=== PATIENT | female | born 1985 | race Hispanic/Latino ===

== ENCOUNTER 2019-03-29 15:56 | Emergency (ER) | payer OTHER ==
[~2019-03-29] VITALS: Ht 170.2 cm; Wt 79.2 kg
[2019-03-29 16:24] LABS: BASO % 0.5 % (0.0-1.0); EOS # 0.1 10^3/uL (0.0-0.50); EOS % 1.4 % (0.0-3.0); HEMATOCRIT 40.4 % (36.0-47.0); HEMOGLOBIN 13.7 g/dl (12.0-15.5); LYMPH % 22.8 % (24.0-44.0); MEAN CORPUSCULAR HEMOGLOBIN 32.2 pg (27.0-33.0); MEAN CORPUSCULAR HGB CONC 33.9 g/dl (32.0-36.5); MEAN CORPUSCULAR VOLUME 94.8 fl (80.0-96.0); MONO # 0.8 10^3/uL (0.0-0.8); MONO % 8.8 % (0.0-5.0); NEUTROPHILS # 5.7 10^3/uL (1.8-7.7); PLATELET COUNT, AUTOMATED 204 10^3/uL (150-450); RED BLOOD COUNT 4.26 10^6/uL (4.00-5.40); WHITE BLOOD COUNT 8.7 10^3/uL (4.0-10.0)
[2019-03-29] MEDS ORDERED: NS 1,000 ML IV ONE (16:30)
[2019-03-29 17:01] LABS: BLOOD UREA NITROGEN 5 MG/DL (7-18); CALCIUM LEVEL 9.6 MG/DL (8.5-10.1); CARBON DIOXIDE LEVEL 25 MEQ/L (21-32); CHLORIDE LEVEL 106 MEQ/L (98-107); CREATININE FOR GFR 0.67 MG/DL (0.55-1.30); GLOMERULAR FILTRATION RATE > 60.0 (>60); GLUCOSE, FASTING 83 MG/DL (70-100); HCG, SERUM QUANTITATIVE 60777 MIU/ML; POTASSIUM SERUM 4.1 MEQ/L (3.5-5.1); SODIUM LEVEL 138 MEQ/L (136-145)
[2019-03-29] MEDS ORDERED: RHOGAM 300 MCG (1500 IU) INJ (J2790) IM ONE (17:30)
--- NOTE | 2019-03-29 18:35 | REPVR ---
EXAM: US First Trimester, Transabdominal EXAM DATE/TIME: 03/29/2019 5:02 PM CLINICAL HISTORY: 33 years old, female; Lmp or gestational age (in weeks): 12; Antepartum complications; Bleeding; ; Additional info: Vaginal bleeding changed from 2nd tri to 1st TECHNIQUE: Imaging protocol: Real-time transabdominal obstetrical ultrasound of the maternal pelvis and a first trimester , less than 14 weeks 0 days, with image documentation. COMPARISON: No relevant prior studies available. FINDINGS: GESTATION: Gestation: Single intrauterine gestation. Heart rate: 171 bpm. Placenta: Unremarkable. No subchorionic bleed. Amniotic fluid: Amniotic and chorionic fluid are normal for gestational age. BIOMETRY: Estimated gestational age: [place] rump length of 6.5 cm, corresponds to gestational age of 12 weeks 6 days. SANIYA is 10/05/19. MATERNAL: Uterus: Unremarkable. Cervix: Unremarkable. Right adnexa: Unremarkable. Left adnexa: Unremarkable. Intraperitoneal: No intraperitoneal free fluid. IMPRESSION: Single living intrauterine with a gestational age of 12 weeks and 6 days by ultrasound. Electronically signed by: Ashleigh Sims On 03/29/2019 18:35:29 PM
[2019-03-29] MEDS ORDERED: metroNIDAZOLE (FLAGYL) 500 MG TAB PO ONE (18:45)
[2019-03-29] MEDS ORDERED: FLAG500T PO (18:46)
[2019-03-29 18:54] LABS: CHLAMYDIA DNA AMPLIFICATION NEGATIVE (NEGATIVE); GC DNA AMPLIFICATION NEGATIVE (NEGATIVE)
[2019-03-29 19:21] VITALS: BP 125/68
== END 2019-03-29 19:24 | disposition home or self-care (01) ==
LOC: M ED 15:56
DX: O20.0 Threatened abortion (principal); O23.591 Infection of other part of genital tract in pregnancy, first trimester; Z3A.12 12 weeks gestation of pregnancy
CPT/HCPCS: 76801; 80048; 81001; 84702; 85025; 86850; 86900; 86901; 87086; 87210; 87491; 87591; 96360; 96361; 96372; 99284; J2790

== ENCOUNTER → 2019-09-12 | Outpatient (REF) | payer OTHER ==
[~2019-09-12] MED LIST: FLAG500T PO
== END ==
LOC: M SFHCLERA 10:27
PROVIDERS: ATTEND Nurse Practitioner Family
DX: J02.9 Acute pharyngitis, unspecified (principal)

== ENCOUNTER 2019-09-25 16:22 | Inpatient (IN) | payer OTHER ==
[~2019-09-25] VITALS: Ht 170.2 cm; Wt 87.2 kg
[2019-09-25] VITALS (9 sets, daily range): BP systolic 138–163; BP diastolic 80–99
[2019-09-25] MEDS ORDERED: ALBU8.5H IH (16:50)
[2019-09-25] MEDS ORDERED: ADV100INH INH (16:50)
[2019-09-25] MEDS ORDERED: PRENTAB9 PO (16:50)
[2019-09-25] MEDS ORDERED: SING10TA32 PO (16:50)
[2019-09-25] MEDS ORDERED: MAPA500T2 PO (16:50)
[2019-09-25] MEDS ORDERED: ALBUTEROL SULFATE 2.5 MG/0.5 ML INH NEB SOLN NEB ONE (17:15)
[2019-09-25 17:52] LABS: HEMATOCRIT 46.6 % (36.0-47.0); MEAN CORPUSCULAR HEMOGLOBIN 31.2 pg (27.0-33.0); MEAN CORPUSCULAR HGB CONC 32.2 g/dl (32.0-36.5); MEAN CORPUSCULAR VOLUME 96.9 fl (80.0-96.0); PLATELET COUNT, AUTOMATED 148 10^3/uL (150-450); RED BLOOD COUNT 4.81 10^6/uL (4.00-5.40); WHITE BLOOD COUNT 12.9 10^3/uL (4.0-10.0)
[2019-09-25 18:13] LABS: APPEARANCE, URINE CLEAR (CLEAR); BACTERIA, URINE AUTO NEGATIVE (NEGATIVE); BILIRUBIN, URINE AUTO NEGATIVE (NEGATIVE); BLOOD, URINE BLOOD NEGATIVE (NEGATIVE); COLOR, URINE STRAW (YELLOW); GLUCOSE, URINE (UA) AUTO NEGATIVE (NEGATIVE); KETONE, URINE AUTO NEGATIVE (NEGATIVE); LEUKOCYTE ESTERASE, URINE AUTO TRACE (NEGATIVE); NITRITE, URINE AUTO NEGATIVE (NEGATIVE); PROTEIN, URINE AUTO NEGATIVE (NEGATIVE); RBC, URINE AUTO 0 /HPF (0-3); SPECIFIC GRAVITY URINE AUTO 1.002 (1.002-1.035); SQUAMOUS EPITHELIAL CELL UR AU 2 /HPF (0-6); UROBILINOGEN, URINE AUTO 0.2 mg/dL (0.0-2.0); WBC, URINE AUTO 3 /HPF (0-3)
[2019-09-25 18:24] LABS: ALT/SGPT 497 U/L (12-78); BILIRUBIN,TOTAL 1.4 MG/DL (0.2-1.0); CREATININE FOR GFR 1.31 MG/DL (0.55-1.30); GLOMERULAR FILTRATION RATE 50.1 (>60); LDH LACTATE DEHYDROGENASE 489 U/L (84-246); URIC ACID 7.8 MG/DL (2.6-6.0)
[2019-09-25 18:38] LABS: CREATININE,RANDOM URINE 13.9 MG/DL; TOTAL PROTEIN,RANDOM URINE 9.1 MG/DL (0.0-12.0)
[2019-09-25 18:40] LABS: INFLUENZA A AMPLIFICATION NEGATIVE (NEGATIVE); INFLUENZA B AMPLIFICATION NEGATIVE (NEGATIVE)
[2019-09-25] MEDS ORDERED: CALCIUM GLUCONATE 1,000 MG in D5W MINI-BAG PLUS 100 ML IV PRN (19:15)
[2019-09-25] MEDS ORDERED: MAG Sulf (L&D) 4 GM/100 ML 4 GM in IV 1 EA IV ONE (19:15)
[2019-09-25] MEDS ORDERED: MAG Sulf (OBGYN) 20GM/500ML 20,000 MG in IV 1 EA IV SCH (19:30)
[2019-09-25] MEDS ORDERED: OXYTOCIN DRIP 30 UNITS in IV 1 EA IV SCH (20:00)
[2019-09-25] MEDS: LR 1,000 ML IV SCH (20:00)
--- NOTE | 2019-09-25 20:20 | HPEPDOC ---
Obstetrical History & Physical General Date of Admission Sep 25, 2019 at 18:43 History of Present Illness Ms. Anton Oswald is a 33yo at 38+2wks who is being admitted for IOL d/t Pre-Eclampsia. She denies RUQ pain/PEÑALOZA/Visual disturbances. She does c/o flu-like symptoms over the past two weeks. She reports +FM, denies LOF/VB; she has had intermittent CTX. Her is complicated by Asthma; she last used albuterol this morning. She has a history of PTD at 36wks and has been on Angie this ; last administered 3DEC19 at 36wks. 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: Abnormal Pap (ASCUS, HPV Negative) Past Medical History Medical History Asthma Surgical History: Dilatation and Curettage Family History Significant Family History: No pertinent family hx Social History Marital Status: Family situation: Spouse/partner home Psychosocial History: No pertinent psych hx * Smoker: non-smoker Alcohol: Denies Imunizations Tdap status: current Influenza Status: declined Allergies Coded Allergies: No Known Allergies (Unverified , 03/29/19) Medications Scheduled No.137/Iron/Folic Acd ( Vitamin Tablet) 1 Each Tablet, 1 TAB PO DAILY Scheduled PRN Acetaminophen (Mapap) 500 Mg Tablet, 1,000 MG PO for PAIN Montelukast Sodium (Singulair) 10 Mg Tablet, 10 MG PO DAILY PRN for DYSPNEA Salmeterol/Fluticasone (Advair 100-50 Diskus) 1 Each Blst.w.dev, 1 PUFF INH BIDP PRN for DYSPNEA Miscellaneous Medications Albuterol Sulfate (Albuterol Sulfate Hfa) 8.5 Gm Hfa.aer.ad, 8.5 GM IH Physical Examination Physical Examination GENERAL: Alert and oriented times three. ABDOMEN: Gravid and non-tender to touch. FETUS: Is vertex by sterile vaginal examination. HEART RATE: Regular rate and rhythm. LUNGS: Clear to auscultation. EXTREMITIES: BLE - no edema; No clonus. Deep tendon reflexes (RLE +2, LLE dim inished) Laboratory Data 24H LABS Laboratory Tests 2 09/25/19 17:15: Urine Color STRAW, Urine Appearance CLEAR, Urine pH 7.0, Urine Specific [place] 1.002, Urine Protein NEGATIVE, Urine Glucose (Auto)(UA) NEGATIVE, Urine Ketones (Auto) NEGATIVE, Urine Blood NEGATIVE, Urine Nitrite NEGATIVE, Urine Bilirubin NEGATIVE, Urine Urobilinogen 0.2, Urine Leukocyte Esterase (Auto) TRACEH, Urine WBC (Auto) 3, Urine RBC (Auto) 0, Urine Hyaline Casts (Auto) 0, Urine Bacteria (Auto) NEGATIVE, Urine Squamous Epithelial Cells 2, Urine Sperm (Auto) , Urine Random Creatinine 13.9, Urine Random Total Protein 9.1 09/25/19 17:30: Influenza Type A (RT-PCR) NEGATIVE, Influenza Type B (RT-PCR) NEGATIVE 09/25/19 17:31: Glomerular Filtration Rate 50.1L, Uric Acid 7.8H, Total Bilirubin 1.4H, Aspartate Amino Transf (AST/SGOT) 245H, Alanine Aminotransferase (ALT/SGPT) 497H, Lactate Dehydrogenase 489H 09/25/19 17:36: Nucleated Red Blood Cells % (auto) 0.5H 09/25/19 19:10: Serology Scanned Report Hepatitis B Testing CBC/BMP Laboratory Tests 09/25/19 17:31 09/25/19 17:36 Pertinent Laboratoy Data Blood Type: O- HIV: Negative Hepatitis B: Negative Rapid Plasma Reagin: Nonreactive Rubella: Immune Varicella: Immune Chlamydia/Gonorrhea: Negative Group B Streptococcus: Negative Glucose Tolerance Test: 126 Anatomy Ultrasound Ultrasound Date: May 27, 2019 Placenta Location: Anterior Normal Anatomy: Yes Placenta Previa: No Vaginal Examination Dilation: 6 cm Effacement: 80% Station: -3 Cervical Consistency: Soft Cervical Position: Posterior Presentation: Cephalic presentation Assessment Heart Rate (FHR): 145 Variability: Moderate Accelerations: Positive Decelerations: None Tocometer Contractions: Yes Frequency: irregular Assessment/Plan Assessment Ms. Anton Oswald is a 33yo G0111 at 38+2 weeks being admitted for Pre-Eclampsia based on mild range BPs and abnormal Pre-E labs. She is Rh Negative (O Negative), GBS Negative, HIV negative. Plan Admit to LND, Consented for Induction of labor Counseled on Magnesium Sulfate and Pitocin IV Start, admission labs drawn PO and IV hydration Redraw Pre-E labs in 6 hours Start Magnesium 4g bolus, then 2g/hr maintenance Strict I/Os CEFM x2 Start Pitocin per protocol Rapid Flu (NEGATIVE) Consulted with Dr. Green; will transfer management at this time Anticipate Epidural if pt desires SAE GONZALEZ CNM Sep 25, 2019 20:20
[2019-09-25] MEDS ORDERED: ALBUTEROL 90 MCG/ACT 8GM HFA INHALER INH PRN (22:00)
[2019-09-25] MEDS ORDERED: guaiFENesin DM LIQ 10ML UD PO ONE (22:00)
--- NOTE | 2019-09-25 22:07 | IPNPDOC ---
Text Note Date of Service The patient was seen on 09/25/19. NOTE patient is a 33 yo @38+2wks admitted for IOL secondary to pre-eclampsia with severe feature (elevated liver enzymes). patient with history of asthma on advair. she has been having congestion with coughing for the past two weeks which has been exacerbating her asthma symptoms. patient denies PEÑALOZA/N/V. pit: 4mU/min Magm/hr vitals: mild range NAD, laying in bed, aox3 cta s w/r/r s1s2 s m/g/c abd: gravid, soft, nt, cephalic by joseph's UE: brachioradialis reflex 2+, symmetrical LE: petalla reflex: 0, no edema fht: 145/mod ashish/pos accel/no decel toco: ctx [id number] a/p patient @ 38+2wks with pre-e with severe feature, undergoing induction of labor. continue with pit and mag prophy. repeat lab 6 hrs after last check. anticipate arom with next check. patient with cough and asthma. continue with advair and albuterol prn. add robitussin DM for cough. VS,Fishbone, I+O VS, Fishbone, I+O Laboratory Tests 09/25/19 17:31 09/25/19 17:36 JAYLON MARTINO DO Sep 25, 2019 22:07
[2019-09-25] MEDS: ADVAIR HFA 230/21MCG INHALER INH SCH (22:20)
[2019-09-26] VITALS (43 sets, daily range): BP systolic 67–167; BP diastolic 40–101
[2019-09-26 00:16] LABS: HEMATOCRIT 46.2 % (36.0-47.0); HEMOGLOBIN 14.7 g/dl (12.0-15.5); MEAN CORPUSCULAR HEMOGLOBIN 30.9 pg (27.0-33.0); MEAN CORPUSCULAR HGB CONC 31.8 g/dl (32.0-36.5); MEAN CORPUSCULAR VOLUME 97.1 fl (80.0-96.0); PLATELET COUNT, AUTOMATED 156 10^3/uL (150-450); RED BLOOD COUNT 4.76 10^6/uL (4.00-5.40); WHITE BLOOD COUNT 13.9 10^3/uL (4.0-10.0)
[2019-09-26 00:41] LABS: ALBUMIN 2.1 GM/DL (3.2-5.2); BILIRUBIN,TOTAL 1.3 MG/DL (0.2-1.0); CALCIUM LEVEL 9.6 MG/DL (8.5-10.1); CREATININE FOR GFR 1.43 MG/DL (0.55-1.30); GLOMERULAR FILTRATION RATE 45.3 (>60); MAGNESIUM LEVEL 5.9 MG/DL (1.8-2.4); POTASSIUM SERUM 4.1 MEQ/L (3.5-5.1); TOTAL PROTEIN 6.9 GM/DL (6.4-8.2)
--- NOTE | 2019-09-26 00:47 | IPNPDOC ---
Text Note Date of Service The patient was seen on 09/26/19. NOTE patient is a 33 yo @38+3 feeling mild ctx. pit: 6mU/min fht: 145/mod ashish/no accel/no decel toco: ctx q 6mins ce: /-1, AROM, particulate MEC. a/p patient in latent labor, continue to titrate pit to effect. recheck in 4hrs. DO adelita VS,Lloyd, I+O VS, Lloyd, I+O Laboratory Tests 09/25/19 17:31 09/25/19 17:36 09/25/19 23:53 I&O- Last 24 Hours up to 6 AM 09/26/19 06:00 Intake Total 250 ml Output Total 800 ml Balance -550 ml JAYLON MARTINO DO Sep 26, 2019 00:47
[2019-09-26] MEDS ORDERED: fentaNYL 100 MCG/2 ML INJECTION (J3010) IV ONE (01:45)
[2019-09-26] MEDS ORDERED: miSOPROStol 200 MCG TAB (S0191) PR ONE (02:00)
[2019-09-26] MEDS ORDERED: LIDOCAINE 1% MDV 20ML VIAL SC ONE (02:00)
[2019-09-26] MEDS ORDERED: ACETAMINOPHEN 500 MG TAB PO ONE (03:00)
[2019-09-26] MEDS ORDERED: METHYLERGONOVINE MALEATE 0.2 MG/ML VIAL (J2210) IM ONE (03:00)
--- NOTE | 2019-09-26 03:13 | DNPDOC ---
[facility] Delivery Note Delivery Note DATE OF DELIVERY: 09/26/2020 PREDELIVERY DIAGNOSIS: 38+3/7 weeks' gestation and labor. pre-eclampsia with severe feature POST DELIVERY DIAGNOSIS: Delivered. pre-eclampsia with severe feature PROCEDURE: TRANSMISSION ASSEMBLER: Dr. Hamida Green DO ANESTHESIA: none ESTIMATED BLOOD LOSS: 500 mL. FINDINGS: 7 pound 15 ounce 3610 gm, femaleinfant, Score 7/8 DELIVERY SUMMARY: With good maternal effort, baby delivered OA. Restituted ROT. Anterior shoulder delivered, followed by posterior shoulder, body followed with ease. Baby placed on maternal abdomen with vigorous cries. Cord allows to stop pulsating. Cord clamped x 2 and cut by FOB. Pitocin bolus started. Placenta delivered spontaneously. Fundus massaged firm. Patient continues to have intermittent gushes of bleeding. Cytotect 1000mcg placed rectally. Bladder straight cath 650cc of urine retrieved. Fundus massaged firm. Bleeding improves. Inspection reveals 1st degree midline laceration repaired with 2-0 vicryl. Baby and mother bonding when I left he room. DO SALENA Green LUAT N. DO Sep 26, 2019 03:13
[2019-09-26] MEDS ORDERED: MORPHINE 10 MG/ML 1ML VIAL (J2270) As Ordered ONE (03:54)
[2019-09-26] MEDS ORDERED: MORPHINE 10 MG/ML 1ML VIAL (J2270) IV ONE (04:00)
[2019-09-26] MEDS ORDERED: OXYTOCIN 30 UNITS IN 0.9% NaCl 500ML IV BAG (J2590) As Ordered ONE (04:48)
[2019-09-26] MEDS ORDERED: LIDOCAINE 2% INJ 100 MG/5 ML SDV (FOR ANES.) As Ordered ONE (05:08)
[2019-09-26] MEDS ORDERED: PROPOFOL 200 MG/20 ML VIAL As Ordered ONE (05:08)
[2019-09-26] MEDS ORDERED: fentaNYL 100 MCG/2 ML INJECTION (J3010) As Ordered ONE (05:08)
[2019-09-26] MEDS ORDERED: MIDAZOLAM INJ 2 MG/2 ML VIAL (J2250) As Ordered ONE (05:08)
[2019-09-26] MEDS ORDERED: ROCURONIUM BROMIDE 50 MG/5 ML VIAL As Ordered ONE (05:08)
[2019-09-26] MEDS ORDERED: ONDANSETRON 4MG/2ML VIAL (J2405) As Ordered ONE (05:08)
[2019-09-26] MEDS ORDERED: PHENYLephrine HCL 500 MCG/5 ML (100MCG/ML) SYRINGE (J2370) As Ordered ONE (05:09)
[2019-09-26] MEDS ORDERED: VASOPRESSIN INJ 20 UNITS/ML VIAL As Ordered ONE (05:19)
[2019-09-26] MEDS ORDERED: SUCCINYLCHOLINE 100 MG/5 ML SYRINGE (J0330) As Ordered ONE (05:27)
[2019-09-26] MEDS ORDERED: OXYTOCIN DRIP 30 UNITS in IV 1 EA IV SCH (05:47)
[2019-09-26] MEDS ORDERED: ACETAMINOPHEN TAB 650MG DOSE (2X325MG) PO PRN (06:00)
[2019-09-26] MEDS ORDERED: RHOGAM 300 MCG (1500 IU) INJ (J2790) IM SCH (06:00)
[2019-09-26] MEDS ORDERED: DIBUCAINE 1% OINTMENT 30GM TOP PRN (06:00)
[2019-09-26] MEDS ORDERED: DOCUSATE SODIUM 100 MG CAP PO PRN (06:00)
[2019-09-26] MEDS ORDERED: MEASLES,MUMPS,RUBELLA VACCINE INJ (MMR-II) (90707) SC SCH (06:00)
[2019-09-26] MEDS ORDERED: UNASYN 1.5 GM VIAL As Ordered ONE (06:09)
[2019-09-26] MEDS ORDERED: ONDANSETRON 4MG/2ML VIAL (J2405) IV PRN (06:15)
[2019-09-26] MEDS ORDERED: fentaNYL 100 MCG/2 ML INJECTION (J3010) IV PRN (06:15)
[2019-09-26] MEDS ORDERED: LR 1,000 ML IV SCH (06:15)
[2019-09-26] MEDS ORDERED: KETOROLAC 30 MG/ML VIAL (J1885) IV PRN (06:15)
[2019-09-26 06:18] LABS: HEMATOCRIT 39.2 % (36.0-47.0); MEAN CORPUSCULAR HEMOGLOBIN 29.1 pg (27.0-33.0); MEAN CORPUSCULAR HGB CONC 30.4 g/dl (32.0-36.5); MEAN CORPUSCULAR VOLUME 95.8 fl (80.0-96.0); PLATELET COUNT, AUTOMATED 108 10^3/uL (150-450); RED BLOOD COUNT 4.09 10^6/uL (4.00-5.40)
[2019-09-26] MEDS: AMPICILLIN SOD/SULBACTAM SOD 3 GM in D5W MINI-BAG PLUS 100 ML IV SCH ×4 (06:21→23:30)
--- NOTE | 2019-09-26 06:26 | IPNPDOC ---
Text Note Date of Service The patient was seen on 09/26/19. NOTE Called in to patient room about 1 hr with concern for passing blood clot and patient feeling dizzy. Patient laying flat, pale. Patient feeling significant dizziness and faint. Bimanual expressed large clots and brisk bleeding followed. Fundus firm to palpation. Mag turned off. BP at 60/42. unable to palpate radial pulse. Fluid bolus ordered. Blood called for. Pitocin maintenance still hanging. patient was given 1000mcg cytotec rectally immediate . methergine 0.2 mcg ordered and given IM. with subsequent bimanual, patient continues to have brisk bleeding. Blood transfusion started. BP improved to normal range after fluid bolus and first unit of blood given. Bakri balloon placement attempted. Was able to place 180cc of NS before it started to come down from the uterus. Bleeding decreased momentarily. Repeat bimanual exam felt bakri balloon in the vagina. that was removed. Patient continues to have brisk bleeding. At this point EBL 1700cc total. Discussed with patient regarding need for emergent fractional curettage and possible placement of bakri balloon in the OR. Patient verbally consented for procedure. Back to OR for emergent surgery. VS,Fishbone, I+O VS, Fishbone, I+O Laboratory Tests 09/25/19 17:31 09/25/19 17:36 09/25/19 23:53 Vital Signs Date Time Temp Pulse Resp B/P (MAP) Pulse Ox O2 Delivery O2 Flow Rate FiO2 09/26/19 04:27 91 20 136/97 (110) 09/25/19 22:45 98.3 I&O- Last 24 Hours up to 6 AM 09/26/19 06:00 Intake Total 250 ml Output Total 2050 ml Balance -1800 ml JAYLON MARTINO DO Sep 26, 2019 06:26
[2019-09-26] MEDS ORDERED: ACETAMINOPHEN *IV* 1,000 MG IV ONE ×2 (06:30)
[2019-09-26 06:35] LABS: HEMOGLOBIN 11.9 g/dl (12.0-15.5); INR 1.85; PROTHROMBIN TIME 21.1 SECONDS (11.8-14.0)
[2019-09-26 06:36] LABS: PARTIAL THROMBOPLASTIN TIME 38.4 SECONDS (25.0-38.4)
[2019-09-26 06:41] LABS: FIBRINOGEN 100 MG/DL (221-452)
[2019-09-26 06:49] LABS: BILIRUBIN,TOTAL 1.9 MG/DL (0.2-1.0); CALCIUM LEVEL 8.2 MG/DL (8.5-10.1); CREATININE FOR GFR 1.49 MG/DL (0.55-1.30); GLOMERULAR FILTRATION RATE 43.2 (>60); POTASSIUM SERUM 5.8 MEQ/L (3.5-5.1); URIC ACID 7.3 MG/DL (2.6-6.0)
[2019-09-26] MEDS ORDERED: ALBUTEROL SULFATE 2.5 MG/0.5 ML INH NEB SOLN As Ordered ONE (06:49)
[2019-09-26] MEDS ORDERED: ALBUTEROL SULFATE 2.5 MG/0.5 ML INH NEB SOLN INH ONE (07:00)
[2019-09-26 07:07] LABS: D-DIMER QUANT > 4000 ng/ml (<500)
--- NOTE | 2019-09-26 07:10 | POST-OPPD ---
Postoperative Procedure Note Date Of Procedure: Sep 26, 2019 PREOPERATIVE DIAGNOSIS: hemorrhage pre-eclampsia with severe features (HELLP) POSTOPERATIVE DIAGNOSIS: hemorrhage pre-eclampsia with severe features (HELLP) FINDINGS: blood clots at fundus, small amount of trailing membranes. PROCEDURE: Exam under anesthesia, Sharp and suction currettage attempt at placing Bakri Balloon repair of first degree laceration SURGEON: Jaylon Green DO FACILITIES ENGINEERING MANAGER: none ANESTHESIA: general SPECIMENS: intrauterine contents ESTIMATED BLOOD LOSS: 300cc COMPLICATIONS: none POSTOPERATIVE CONDITION: stable Indication for procedure: Patient with immediate hemorrhage, unable to control in room. Patient verbally consented for emergent take back to OR for sharp curettage and possible placement of Bakri balloon. Description of procedure: Patient underwent general anesthesia with endotracheal intubation. Patient placed on low lithotomy using yellow fins. She was draped. Blood clots expressed with bimanual. Vaginal exam shows no cervical laceration. First degree laceration is not bleeding. Bleeding appears to come intrauterine. Fundus continues to be firm on palpation. Small banjo curette used and able to clear clots and debris from uterus. There was no evidence of retained placental tissue. Small amounts of trailing membranes noted. A curve 14mm suction curette used to perform suction curette. Attempt to place Bakri balloon resulted in expulsion x 2. Bleeding subsides and remains scant with fundus continues to be firm. Pitocin restarted. Count correct x 2. Patient extubated and taken out of OR in stable condition. JAYLON GREEN DO Sep 26, 2019 05:55
[2019-09-26] MEDS: ADVAIR HFA 230/21MCG INHALER INH SCH ×2 (07:54→20:21)
[2019-09-26 10:08] LABS: HEMOGLOBIN 10.5 g/dl (12.0-15.5); MEAN CORPUSCULAR HEMOGLOBIN 29.7 pg (27.0-33.0); MEAN CORPUSCULAR HGB CONC 31.8 g/dl (32.0-36.5); MEAN CORPUSCULAR VOLUME 93.5 fl (80.0-96.0); PLATELET COUNT, AUTOMATED 104 10^3/uL (150-450); RED BLOOD COUNT 3.53 10^6/uL (4.00-5.40)
[2019-09-26] MEDS ORDERED: MAG Sulf (OBGYN) 20GM/500ML 20,000 MG in IV 1 EA IV SCH (10:15)
[2019-09-26] MEDS ORDERED: MAGNESIUM SULFATE 4% INJ 20GM/500ML (40MG/ML) (J3475) As Ordered ONE (10:16)
[2019-09-26 10:20] LABS: INR 1.77; PROTHROMBIN TIME 20.4 SECONDS (11.8-14.0); WHITE BLOOD COUNT 31.4 10^3/uL (4.0-10.0)
[2019-09-26 10:21] LABS: PARTIAL THROMBOPLASTIN TIME 34.8 SECONDS (25.0-38.4)
[2019-09-26 10:26] LABS: FIBRINOGEN 98 MG/DL (221-452)
[2019-09-26 10:46] LABS: D-DIMER QUANT > 4000 ng/ml (<500)
[2019-09-26] MEDS ORDERED: LR 500 ML IV ONE (11:00)
[2019-09-26 14:23] LABS: BILIRUBIN,TOTAL 1.9 MG/DL (0.2-1.0); CREATININE FOR GFR 1.4 MG/DL (0.55-1.30); GLOMERULAR FILTRATION RATE 46.4 (>60); URIC ACID 7.8 MG/DL (2.6-6.0)
[2019-09-26] MEDS: PRENATAL VITAMINS CHEWABLE TABLET PO SCH (15:57)
[2019-09-26 16:20] LABS: HEMATOCRIT 29.9 % (36.0-47.0); HEMOGLOBIN 9.6 g/dl (12.0-15.5); MEAN CORPUSCULAR HEMOGLOBIN 30.2 pg (27.0-33.0); MEAN CORPUSCULAR HGB CONC 32.1 g/dl (32.0-36.5); PLATELET COUNT, AUTOMATED 111 10^3/uL (150-450); RED BLOOD COUNT 3.18 10^6/uL (4.00-5.40)
[2019-09-26 16:22] LABS: WHITE BLOOD COUNT 39.8 10^3/uL (4.0-10.0)
[2019-09-26 16:30] LABS: INR 1.65; PARTIAL THROMBOPLASTIN TIME 33.7 SECONDS (25.0-38.4); PROTHROMBIN TIME 19.3 SECONDS (11.8-14.0)
[2019-09-26 16:36] LABS: FIBRINOGEN 117 MG/DL (221-452)
[2019-09-26] MEDS: LR 1,000 ML IV SCH (16:42)
[2019-09-26 16:49] LABS: D-DIMER QUANT > 4000.0 ng/ml (<500)
[2019-09-26 17:18] LABS: ALBUMIN 1.3 GM/DL (3.2-5.2); BILIRUBIN,TOTAL 1.3 MG/DL (0.2-1.0); CALCIUM LEVEL 7.5 MG/DL (8.5-10.1); CREATININE FOR GFR 1.6 MG/DL (0.55-1.30); GLOMERULAR FILTRATION RATE 39.8 (>60); POTASSIUM SERUM 4.7 MEQ/L (3.5-5.1); TOTAL PROTEIN 4.7 GM/DL (6.4-8.2)
--- NOTE | 2019-09-26 19:20 | IPNPDOC ---
Progress Note Date of Service: Sep 26, 2019 Progress Note Deidre is a 33 yo G3 now P2 who is s/p early this morning (~0230) after being admitted for an IOL for pre eclampsia with severe features and HELLP Syndrome. She had a hemorrhage with an approximately 2000ml blood loss, to include blood loss with delivery. She was taken to the OR about 2-3 hours after delivery in order to control the hemorrhage. She underwent multiple uterine sweeps, a curettage, and received 2U PRBCs in addition to methergine and cytotec. A bakri balloon was attempted a couple times but would not remain within the uterus. Bleeding improved after these interventions and stabilized. She has been receiving 1gm/hr IV magnesium throughout the day for seizure prophylaxis. We are following her LFTs, platelets, and creatinine closely. She is receiving 3gm Unasyn Q6H due to her multiple uterine sweeps and explorations. BPs have remained stable today with only mild elevations. HR is 90s-100s to 110s. She has an appropriate pulse ox. She is afebrile. Deidre reports feeling tired and groggy but denies any pain to include headaches, RUQ pain, or SOB. She endorses some blurry vision. General - Deidre is tired appearing, but is in bed and is able to answer questions appropriately. Abdomen - Fundus firm at U. No fundal tenderness. Extremities - 1+ pitting edema in upper and lower extremities UO - Improving, ~100ml/hr over last several hours via jewlel catheter Labs: LFTS downtrending, but slowly, Cr hovering around 1.4-1.6. Platelets improving to ~110. H/H remains stable. WBC count very elevated at 39. Deidre is stable. Urine output is improving. I suspect her creatinine will start trending in the appropriate direction as she continues to diurese. Will halt IV magnesium at ~0200. Blood pressures are stable along with H/H. Note made of elevated WBC count and I suspect this is due to her multiple uterine explorations and procedures. Will continue Unasyn for full 24 hours postope ratively. If Deidre remains stable overnight, will potentially be able to move her to the [facility] in the morning. All patient and questions answered. Lorenza Rios, DO VS, I&O, 24H, Fishbone Vital Signs/I&O Vital Signs Date Time Temp Pulse Resp B/P (MAP) Pulse Ox O2 Delivery O2 Flow Rate FiO2 09/26/19 18:39 100 16 121/71 (88) 09/26/19 16:40 99 09/26/19 15:40 97.9 09/26/19 14:40 Nasal Cannula 2.0 I&O- Last 24 Hours up to 6 AM 09/26/19 05:59 Intake Total 1350 ml Output Total 3234 ml Balance -1884 ml Laboratory Data 24H LABS Laboratory Tests 2 09/25/19 19:10: Serology Scanned Report Hepatitis B Testing 09/25/19 23:53: Nucleated Red Blood Cells % (auto) 0.6H, Anion Gap 11, Glomerular Filtration Rate 45.3L, Calcium Level 9.6, Magnesium Level 5.9*H, Total Bilirubin 1.3H, Aspartate Amino Transf (AST/SGOT) 207H, Alanine Aminotransferase (ALT/SGPT) 449H, Alkaline Phosphatase 333H, Total Protein 6.9, Albumin 2.1L, Albumin/Globulin Ratio 0.44L 09/26/19 05:04: POC pH (Misc Panel) 7.251L, POC Base Excess (Misc Panel) -10.0L, POC Saturated Percent O2 (Misc) 83L, POC pO2 (Misc Panel) 55.0L, POC pCO2 (Misc Panel) 39.1, POC HCO3 (Misc Panel) 17.2L, POC Glucose (Misc Panel) 91, POC Sodium (Misc Panel) 135L, POC Potassium (Misc Panel) 5.1, POC Total CO2 (Misc Panel) 18.0L, POC Ionized Calcium (Misc Panel) 5.1, POC Hemoglobin (Calculated)(Misc) 11.2L, POC Hematocrit (Misc Panel) 33.0L 09/26/19 06:08: Nucleated Red Blood Cells % (auto) 0.8H, Anion Gap 8, Glomerular Filtration Rate 43.2L, Calcium Level 8.2L, Total Bilirubin 1.9H, Aspartate Amino Transf (AST/SGOT) 135H, Alanine Aminotransferase (ALT/SGPT) 273H, Prothrombin Time 21.1H, Prothromb Time International Ratio 1.85, Activated Partial Thromboplast Time 38.4, Fibrinogen 100L, D-Dimer, Quantitative > 4000H, Uric Acid 7.3H, Lactate Dehydrogenase 481H 09/26/19 09:56: Nucleated Red Blood Cells % (auto) 0.5H, Prothrombin Time 20.4H, Prothromb Time International Ratio 1.77, Activated Partial Thromboplast Time 34.8, Fibrinogen 98L, D-Dimer, Quantitative > 4000H, Glomerular Filtration Rate 46.4L, Uric Acid 7.8H, Total Bilirubin 1.9H, Aspartate Amino Transf (AST/SGOT) 153H, Alanine Aminotransferase (ALT/SGPT) 275H, Lactate Dehydrogenase 665H 09/26/19 16:08: Nucleated Red Blood Cells % (auto) 0.5H, Prothrombin Time 19.3H, Prothromb Time International Ratio 1.65, Activated Partial Thromboplast Time 33.7, Fibrinogen 117L, D-Dimer, Quantitative > 4000.0H, Glomerular Filtration Rate 39.8L, Total Bilirubin 1.3H, Aspartate Amino Transf (AST/SGOT) 120H, Alanine Aminotransferase (ALT/SGPT) 244H, Anion Gap 11, Calcium Level 7.5L, Alkaline Phosphatase 212H, Total Protein 4.7#L, Albumin 1.3#L, Albumin/Globulin Ratio 0.38L CBC/BMP Laboratory Tests 09/25/19 23:53 09/26/19 06:08 09/26/19 09:56 09/26/19 16:08 LORENZA RIOS DO Sep 26, 2019 19:20
[2019-09-27] VITALS (21 sets, daily range): BP systolic 117–146; BP diastolic 42–87
[2019-09-27] MEDS: ACETAMINOPHEN 500 MG TAB PO PRN ×2 (01:33→18:38)
[2019-09-27] MEDS: AMPICILLIN SOD/SULBACTAM SOD 3 GM in D5W MINI-BAG PLUS 100 ML IV SCH (05:26)
[2019-09-27 05:43] LABS: HEMATOCRIT 22.4 % (36.0-47.0); MEAN CORPUSCULAR HEMOGLOBIN 30.4 pg (27.0-33.0); MEAN CORPUSCULAR HGB CONC 32.6 g/dl (32.0-36.5); MEAN CORPUSCULAR VOLUME 93.3 fl (80.0-96.0); PLATELET COUNT, AUTOMATED 114 10^3/uL (150-450)
[2019-09-27 05:45] LABS: HEMOGLOBIN 7.3 g/dl (12.0-15.5); WHITE BLOOD COUNT 38.8 10^3/uL (4.0-10.0)
[2019-09-27 06:05] LABS: ALBUMIN 1.3 GM/DL (3.2-5.2); CALCIUM LEVEL 6.8 MG/DL (8.5-10.1); CREATININE FOR GFR 1.47 MG/DL (0.55-1.30); GLOMERULAR FILTRATION RATE 43.9 (>60); POTASSIUM SERUM 4.2 MEQ/L (3.5-5.1); TOTAL PROTEIN 4.2 GM/DL (6.4-8.2)
--- NOTE | 2019-09-27 08:13 | IPNPDOC ---
Progress Note Date of Service: Sep 27, 2019 Progress Note Deidre is a 33 yo G3 no2 P2 who is PPD#1 s/p at ~0230 on 26Sep2019 after being admitted for an IOL for severe pre eclampsia / HELLP Syndrome. She had a hemorrhage with total EBL ~2000ml. She received uterotonics, multiple uterine sweeps, and underwent an curettage in the OR. Bleeding stabilized and she received 2U PRBCs. She completed 24 hours of IV magnesium for seizure prophylaxis last night at ~0230. We have been trending bl ood work and she remained stable all of yesterday. She just completed 24 hours of post procedure IV unasyn for infection prophylaxis after her multiple uterine sweeps and curettage procedure. Deidre is sleeping in bed. I did not awaken her. Vitals - VSS, only mildly elevated BPs but mostly normal. HR 90s-100s. Afebrile. Pulse ox 100% on RA General - sleeping in bed UO - good. ~100ml/hr. Most recent Labs (529 on 27Sep2019): H/H - 7.3/22.4 plts - 114 WBC - 38 Cr - 1.47 AST/ALT - 74/175 Deidre is doing well. She has completed 24 hours of IV magnesium for seizure prophylaxis and 24 hours postprocedure IV unasyn. Cr, platelets, and AST/ALT trending in the right direction. H/H likely represents true betina from her hemorrhage. She has no signs / symptoms of active bleeding. Will remove catheter today and ambulate. If she has symptoms of anemia would consider additional 2U PRBC transfusion. WBC count continues to be elevated, though she is afebrile. I suspect this is from her multiple uterine sweeps / explorations. She completed 24 hours of IV abx for infection prophylaxis. Would recommend repeat tox labs early this afternoon. Otherwise is Deidre can ambulate well and void on her own without problems, she can be transferred to the [facility]. If ambulation is suboptimal, I would recommend she keep SCDs in place due to her clotting risk. Lorenza Rios, DO VS, I&O, 24H, Fishbone Vital Signs/I&O Vital Signs Date Time Temp Pulse Resp B/P (MAP) Pulse Ox O2 Delivery O2 Flow Rate FiO2 09/27/19 04:55 97.7 105 18 141/75 (97) 100 Room Air 09/26/19 14:40 2.0 I&O- Last 24 Hours up to 6 AM 09/27/19 06:00 Intake Total 3162.4 ml Output Total 2330 ml Balance 832.4 ml Laboratory Data 24H LABS Laboratory Tests 2 09/26/19 09:56: Nucleated Red Blood Cells % (auto) 0.5H, Prothrombin Time 20.4H, Prothromb Time International Ratio 1.77, Activated Partial Thromboplast Time 34.8, Fibrinogen 98L, D-Dimer, Quantitative > 4000H, Glomerular Filtration Rate 46.4L, Uric Acid 7.8H, Total Bilirubin 1.9H, Aspartate Amino Transf (AST/SGOT) 153H, Alanine Aminotransferase (ALT/SGPT) 275H, Lactate Dehydrogenase 665H 09/26/19 16:08: Nucleated Red Blood Cells % (auto) 0.5H, Prothrombin Time 19.3H, Prothromb Time International Ratio 1.65, Activated Partial Thromboplast Time 33.7, Fibrinogen 117L, D-Dimer, Quantitative > 4000.0H, Glomerular Filtration Rate 39.8L, Total Bilirubin 1.3H, Aspartate Amino Transf (AST/SGOT) 120H, Alanine Aminotransferase (ALT/SGPT) 244H, Anion Gap 11, Calcium Level 7.5L, Alkaline Phosphatase 212H, Total Protein 4.7#L, Albumin 1.3#L, Albumin/Globulin Ratio 0.38L 09/27/19 05:18: Nucleated Red Blood Cells % (auto) 0.6H, Glomerular Filtration Rate 43.9L, Total Bilirubin 1.0, Aspartate Amino Transf (AST/SGOT) 74H, Alanine Aminotransferase (ALT/SGPT) 175H, Anion Gap 11, Calcium Level 6.8L, Alkaline Phosphatase 174H, Total Protein 4.2L, Albumin 1.3L, Albumin/Globulin Ratio 0.45L CBC/BMP Laboratory Tests 09/26/19 09:56 09/26/19 16:08 09/27/19 05:18 LORENZA RIOS DO Sep 27, 2019 08:13
[2019-09-27] MEDS: ADVAIR HFA 230/21MCG INHALER INH SCH ×2 (09:00→18:50)
[2019-09-27] MEDS: PRENATAL VITAMINS CHEWABLE TABLET PO SCH (09:26)
[2019-09-27 13:03] LABS: MEAN CORPUSCULAR HEMOGLOBIN 30.5 pg (27.0-33.0); MEAN CORPUSCULAR HGB CONC 32.8 g/dl (32.0-36.5); PLATELET COUNT, AUTOMATED 114 10^3/uL (150-450); RED BLOOD COUNT 2.13 10^6/uL (4.00-5.40)
[2019-09-27 13:12] LABS: HEMOGLOBIN 6.5 g/dl (12.0-15.5)
[2019-09-27 13:13] LABS: HEMATOCRIT 19.8 % (36.0-47.0)
[2019-09-27 13:25] LABS: ALBUMIN 1.2 GM/DL (3.2-5.2); BILIRUBIN,TOTAL 0.7 MG/DL (0.2-1.0); CREATININE FOR GFR 1.35 MG/DL (0.55-1.30); GLOMERULAR FILTRATION RATE 48.4 (>60); POTASSIUM SERUM 3.9 MEQ/L (3.5-5.1); TOTAL PROTEIN 4.2 GM/DL (6.4-8.2)
[2019-09-27 13:41] LABS: WHITE BLOOD COUNT 35.4 10^3/uL (4.0-10.0)
[2019-09-27 18:18] LABS: HEMATOCRIT 26.7 % (36.0-47.0); MEAN CORPUSCULAR HEMOGLOBIN 29.1 pg (27.0-33.0); MEAN CORPUSCULAR HGB CONC 32.6 g/dl (32.0-36.5); MEAN CORPUSCULAR VOLUME 89.3 fl (80.0-96.0); PLATELET COUNT, AUTOMATED 114 10^3/uL (150-450); RED BLOOD COUNT 2.99 10^6/uL (4.00-5.40)
[2019-09-27 18:19] LABS: HEMOGLOBIN 8.7 g/dl (12.0-15.5); WHITE BLOOD COUNT 31.5 10^3/uL (4.0-10.0)
[2019-09-27 18:45] LABS: ALBUMIN 1.3 GM/DL (3.2-5.2); CREATININE FOR GFR 1.21 MG/DL (0.55-1.30); GLOMERULAR FILTRATION RATE 54.9 (>60); TOTAL PROTEIN 4.4 GM/DL (6.4-8.2)
[2019-09-28 02:00] VITALS: BP 145/82
[2019-09-28] MEDS ORDERED: ONDANSETRON 4MG/2ML VIAL (J2405) IV ONE (06:15)
[2019-09-28 06:31] LABS: HEMOGLOBIN 8.5 g/dl (12.0-15.5); MEAN CORPUSCULAR HEMOGLOBIN 29.2 pg (27.0-33.0); MEAN CORPUSCULAR HGB CONC 32.7 g/dl (32.0-36.5); MEAN CORPUSCULAR VOLUME 89.3 fl (80.0-96.0); PLATELET COUNT, AUTOMATED 119 10^3/uL (150-450); RED BLOOD COUNT 2.91 10^6/uL (4.00-5.40)
[2019-09-28 06:58] LABS: ALBUMIN 1.4 GM/DL (3.2-5.2); ALT/SGPT 127 U/L (12-78); BILIRUBIN,TOTAL 0.8 MG/DL (0.2-1.0); BLOOD UREA NITROGEN 27 MG/DL (7-18); CALCIUM LEVEL 7.1 MG/DL (8.5-10.1); CARBON DIOXIDE LEVEL 23 MEQ/L (21-32); CHLORIDE LEVEL 109 MEQ/L (98-107); CREATININE FOR GFR 1.09 MG/DL (0.55-1.30); GLOMERULAR FILTRATION RATE > 60.0 (>60); GLUCOSE, FASTING 66 MG/DL (70-100); SODIUM LEVEL 138 MEQ/L (136-145); TOTAL PROTEIN 4.7 GM/DL (6.4-8.2)
[2019-09-28] MEDS: ADVAIR HFA 230/21MCG INHALER INH SCH ×2 (07:49→19:46)
[2019-09-28 10:00] VITALS: BP 135/75
[2019-09-28] MEDS: PRENATAL VITAMINS CHEWABLE TABLET PO SCH (11:11)
[2019-09-28 13:47] VITALS: BP 147/72
[2019-09-28 18:00] VITALS: BP 140/77
[2019-09-28] MEDS: ACETAMINOPHEN 500 MG TAB PO PRN (18:22)
[2019-09-28 22:00] VITALS: BP 126/76
[2019-09-28] MEDS ORDERED: CEPACOL LOZENGE PO PRN (22:45)
[2019-09-29 02:00] VITALS: BP 144/82
[2019-09-29] MEDS: ACETAMINOPHEN 500 MG TAB PO PRN (02:23)
[2019-09-29 06:00] VITALS: BP 127/72
[2019-09-29] MEDS: ADVAIR HFA 230/21MCG INHALER INH SCH (07:26)
--- NOTE | 2019-09-29 08:25 | REP ---
Clinical: Cough. History of asthma. . Comparison: None . Technique: PA and lateral. Findings: The mediastinum and cardiac silhouette are normal. The lung aguero are clear and without acute consolidation, effusion, or pneumothorax. The skeletal structures are intact and normal. Impression: 1. No acute cardiopulmonary process. Electronically Signed by Orlin Kimble MD 09/29/2019 08:16 A
[2019-09-29] MEDS: PRENATAL VITAMINS CHEWABLE TABLET PO SCH (08:27)
[2019-09-29] MEDS ORDERED: ALBUTEROL SULFATE 2.5 MG/0.5 ML INH NEB SOLN NEB ONE (09:00)
--- NOTE | 2019-09-29 09:03 | IPNPDOC ---
Progress Note Date of Service: Sep 29, 2019 Day#: 3 Progress Note PP/POD 3 Deidre is a 33yo G3 now P1202 who is PPD#3 s/p on Sep after being admitted for an IOL for pre-eclampsia with severe features, HELLP Syndrome. Additionally, she had a hemorrhage with total EBL ~2000ml. She received uterotonics, multiple uterine sweeps, and underwent a curettage in the OR. Bleeding stabilized and she received total 4U pRBCs. She completed 24 hours of IV magnesium for seizure prophylaxis and she received 24 hours of post-procedure IV Unasyn for infection prophylaxis. Notably, when patient was first admitted, she noted an ongoing upper respiratory infection and she is an asthmatic who takes both daily inhaler and prn albuterol. Deidre reports overall doing well this morning, only complaint is "chest heaviness" with her cough. She requested throat lozenges last night. Respiratory therapy arrived just after I finished rounding on Deidre. She is voiding spontaneously without issues, ambulating without lightheadedness or dizziness, tolerating regular diet. She is pumping but has no output yet, formula feeding infant with plan to continue trying to stimulate milk production. She reports having a fever last night (100.2F), no chills. No headache/vision changes/RUQ p ain. Vitals: normotensive to mild range bp's, afebrile. General - resting comfortably in bed Abdomen- soft, NTTP, FF @ u-2 Extremities: no pain with palpation of calves Labs: last drawn am 09/28 H/H - 8.5/26 from 7.3/22.4 plts - 119, stable WBC -29 down from 38 Cr - 1.09 down from 1.47 AST/ALT - 62/127 down from 74/175 09/25 influenza A and B negative Radiology: Chest XRAY 09/29/19: no acute cardiopulmonary process Assessment: Deidre is a 33yo G3 now P1202 who is PPD#3 s/p on Sep after being admitted for an IOL for pre-eclampsia with severe features, HELLP Syndrome. Additionally, she had a hemorrhage with total EBL ~2000ml. She received uterotonics, multiple uterine sweeps, and underwent a curettage in the OR. Bleeding stabilized and she received total 4U pRBCs. She completed 24 hours of IV magnesium for seizure prophylaxis and she received 24 hours of post-procedure IV Unasyn for infection prophylaxis. Notably, when patient was first admitted, she noted an ongoing upper respiratory infection and she is an asthmatic who takes both daily inhaler and prn albuterol. Patient has cough w/chest heaviness- chest xray negative this morning. She had a temp of 100.2F last night, but no sx of endometritis- may be related to her ongoing URI. Mild range to normotensive bps, no s/sx of worsening pre-E. Labs have all improved. Benign exam. Plan: -Routine care -Med neb treatment ordered -Regular diet -encourage ambulation, breast pumping, use of IS -continue routine inhalers -Dr. Green will re-eval this afternoon and if patient meets criteria, she will be discharged Dr. Giana Rod MD VS, I&O, 24H, Fishbone Vital Signs/I&O Vital Signs Date Time Temp Pulse Resp B/P (MAP) Pulse Ox O2 Delivery O2 Flow Rate FiO2 09/29/19 06:00 98.0 87 20 127/72 (90) 100 Room Air 09/26/19 14:40 2.0 Giana Rod MD Sep 29, 2019 08:53
[2019-09-29 10:00] VITALS: BP 147/76
--- NOTE | 2019-09-29 12:05 | OBDS ---
[facility] Obstetrical Discharge Sum. Obstetrical Discharge Summary : 3 Term: 2 Pre-term: 0 Abortions: 1 Livin VDRL: Non-Reactive Rh: Negative Rubella: Immune Infant Sex: Female Weight: pounds (7), ounces (15), grams (3610) A/P, Post Course List any complications Admission diagnosis: Gravid at 38+2wks pre-eclampsia with severe features (HELLP) asthma Discharge diagnosis: () pre-eclampsia with severe features (HELLP) hemorrhage asthma Condition at Discharge: stable Discharge Instructions: Home Activity: as tolerated Diet: regular Medications: Filled at [facility] Follow-up: 3-4 days for blood pressure check at clinic, 2 weeks for follow up Hospital Course: Patient admitted to labor and delivery at 38+2wks gestation with pre-eclampsia with severe feature (HELLP) for induction of labor. She was started on M agnesium for seizure prophylaxis. Patient progressed to have a spontaneous vaginal delivery. course complicated by hemorrhage requiring blood transfusion of 2 units PRBC and take back to OR for fractional and suction curettage. Patient was continued with Magnesium prophy for 24 hrs . She was also on IV antibiotics for 24hrs for multiple uterine sweeps. Patient received another 2 units PRBC for symptomatic anemia. The remainder of her course was uncomplicated. Patient meets criteria for discharge on day #4. DO SALENA Green LUAT N. DO Sep 26, 2019 03:19
== END 2019-09-29 13:50 | disposition home or self-care (01) | DRG 764 ==
LOC: M LDO 16:22 → M LDI 18:43 → M OBS 09-27 16:44
PROVIDERS: ADMIT Registered Nurse Maternal Newborn; ATTEND Obstetrics & Gynecology
PROC: 3E033VJ Introduction of Other Hormone into Peripheral Vein, Percutaneous Approach (ICD-10-PCS; 2019-09-25)
PROC: 30233N1 Transfusion of Nonautologous Red Blood Cells into Peripheral Vein, Percutaneous Approach (ICD-10-PCS; 2019-09-25)
PROC: 10D17ZZ Extraction of Products of Conception, Retained, Via Natural or Artificial Opening (ICD-10-PCS; 2019-09-26)
PROC: 10E0XZZ Delivery of Products of Conception, External Approach (ICD-10-PCS; principal; 2019-09-26 04:19)
DX: O14.24 HELLP syndrome, complicating childbirth (principal); Z37.0 Single live birth; Z3A.38 38 weeks gestation of pregnancy; O99.52 Diseases of the respiratory system complicating childbirth; J45.909 Unspecified asthma, uncomplicated; O72.1 Other immediate postpartum hemorrhage; O70.0 First degree perineal laceration during delivery